=== PATIENT | female | born 2000 | race Caucasian/White ===

== ENCOUNTER 2019-08-22 13:30 | Emergency (ER) | payer OTHER ==
[2019-08-22 14:09] VITALS: BP 118/77
[2019-08-22] MEDS ORDERED: KETOROLAC TROMETHAMINE 60 MG/2 ML SDV IM ONE (14:13)
[2019-08-22] MEDS ORDERED: ACETAMINOPHEN 325 MG TABLET PO ONE (14:14)
[2019-08-22] MEDS ORDERED: LIDOCAINE 5% (700 MG) TRANSDERMAL ADH..PATCH TP ONE (14:14)
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
== END 2019-08-22 14:50 | disposition home or self-care (01) ==
LOC: ER 13:30
DX: S16.1XXA Strain of muscle, fascia and tendon at neck level, initial encounter (principal); M54.2 Cervicalgia; V87.7XXA Person injured in collision between other specified motor vehicles (traffic), initial encounter
CPT/HCPCS: 99283; 96372; J1885

== ENCOUNTER 2019-09-24 11:01 | Emergency (ER) | payer OTHER ==
--- NOTE | 2019-09-24 12:59 | ER Document Report ---
ED Medical Screen (RME) - General Chief Complaint: Vaginal Bleeding Stated Complaint: VAGINAL BLEEDING Time Seen by Provider: 09/24/19 12:54 Notes: HPI: 18-year-old female presenting to the emergency department complaining of vaginal bleeding over the last 2 days. Has had some tissue and clots. States she found out she was 3 days ago. States vaginal bleeding has eased off slightly today but she is still bleeding. Reports mild pelvic cramping. Patient believes she is approximately 5 weeks by dates. Did have a positive test at home I have greeted and performed a rapid initial assessment of this patient. A comprehensive ED assessment and evaluation of the patient, analysis of test results and completion of the medical decision making process will be conducted by additional ED providers PHYSICAL EXAMINATION: GENERAL: Well-appearing, well-nourished and in no acute distress. HEAD: Atraumatic, normocephalic. EYES: sclera anicteric, conjunctiva are normal. ENT: Moist mucous membranes. NECK: Normal range of motion LUNGS: Normal work of breathing HEART: 2+ radial pulses bilaterally ABD: limited by positioning for exam in triage. No reproducible abdominal pain on palpation EXTREMITIES: no pitting or edema. No cyanosis. NEUROLOGICAL: No focal neurological deficits. Moves all extremities spontaneously and on command. PSYCH: Normal mood, normal affect. SKIN: Warm, Dry, normal turgor, no rashes or lesions noted. TRAVEL OUTSIDE OF THE [place] IN LAST 30 DAYS: No - Related Data Allergies/Adverse Reactions: No Known Allergies Allergy (Unverified 08/22/19 14:01) Physical Exam - Vital signs Vitals: Temp Pulse Resp BP Pulse Ox 98.8 F 94 19 148/78 H 100 09/24/19 12:09/24/19 12:09/24/19 12:09/24/19 12:09/24/19 12:27 Course - Vital Signs Vital signs: Temp Pulse Resp BP Pulse Ox 98.8 F 94 19 148/78 H 100 09/24/19 12:27 09/24/19 12:27 09/24/19 12:27 09/24/19 12:27 09/24/19 12:27
[2019-09-24 13:36] LABS: ABSOLUTE BASOPHILS # (AUTO) 0.1 10^3/uL (0.0-0.2); ABSOLUTE EOSINOPHILS # (AUTO) 0.2 10^3/uL (0.0-0.6); ABSOLUTE LYMPHOCYTES (AUTO) 2.4 10^3/uL (0.5-4.7); ABSOLUTE MONOCYTES (AUTO) 0.4 10^3/uL (0.1-1.4); ABSOLUTE NEUT (AUTO) 5.2 10^3/uL (1.7-8.2); BASOPHILS % (AUTO) 0.6 % (0-2); EOSINOPHILS % (AUTO) 2.9 % (0-6); HEMATOCRIT 42.2 % (36.0-47.0); LYMPHOCYTES % (AUTO) 29.2 % (13-45); MEAN CORPUSCULAR HEMOGLOBIN 30.4 pg (27.0-33.4); MEAN CORPUSCULAR HGB CONC 35.5 g/dL (32.0-36.0); MEAN CORPUSCULAR VOLUME 86 fl (80-97); MONOCYTES % (AUTO) 4.5 % (3-13); PLATELET COUNT 283 10^3/uL (150-450); RED BLOOD COUNT 4.93 10^6/uL (3.72-5.28); RED CELL DISTRIBUTION WIDTH 12.3 % (11.5-14.0); SEGMENTED NEUTROPHILS % (AUTO) 62.8 % (42-78); TOTAL CELLS COUNTED % (AUTO) 100 %; WHITE BLOOD COUNT 8.3 10^3/uL (4.0-10.5)
[2019-09-24 13:44] LABS: APPEARANCE,URINE SLIGHTLY-CLOUDY; BILIRUBIN,URINE NEGATIVE (NEGATIVE); COLOR,URINE YELLOW; GLUCOSE, URINE NEGATIVE (NEGATIVE); KETONES,URINE NEGATIVE (NEGATIVE); LEUKOCYTE ESTERASE,URINE NEGATIVE (NEGATIVE); NITRITE,URINE NEGATIVE (NEGATIVE); PROTEIN,URINE NEGATIVE (NEGATIVE); URINE SPECIFIC GRAVITY 1.011; UROBILINOGEN,URINE NEGATIVE mg/dL (<2.0)
[2019-09-24 13:57] LABS: ALBUMIN 4.7 g/dL (3.5-5.0); ALKALINE PHOSPHATASE 67 U/L (38-126); ANION GAP 11 (5-19); ASPARTATE AMINO TRANSFERASE 25 U/L (14-36); BILIRUBIN,DIRECT 0.2 mg/dL (0.0-0.4); BILIRUBIN,TOTAL 0.4 mg/dL (0.2-1.3); BLOOD UREA NITROGEN 11 mg/dL (7-20); CALCIUM 9.9 mg/dL (8.4-10.2); CARBON DIOXIDE 26 mmol/L (22-30); CHLORIDE 101 mmol/L (98-107); GLUCOSE 105 mg/dL (75-110); POTASSIUM 4.8 mmol/L (3.6-5.0); TOTAL PROTEIN 7.9 g/dL (6.3-8.2)
[2019-09-24 15:07] LABS: CHLAM PCR NOT DETECTED (NOT DETECT)
--- NOTE | 2019-09-24 15:39 | RADIOLOGY REPORT (SQ) ---
EXAM DESCRIPTION: U/S OB TRANSVAG W/DOPPLER COMPLETED DATE/TIME: 09/24/2019 3:07 pm REASON FOR STUDY: vag bleeding COMPARISON: None. TECHNIQUE: Transvaginal static and realtime grayscale images acquired of the pelvis. Additional keanu cted spectral and color Doppler images recorded. All images stored on PACs. bHC.32 mIU/mL. CLINICAL DATES: LMP 08/20/2019. ROSITA based on LMP 05/26/2020. EGA based on LMP 5 weeks 0 days. LIMITATIONS: None. FINDINGS: UTERUS: The uterus measures 7.4 x 4.6 x 3.8 cm. There is no intrauterine gestation. The endometrial endometrium measures 7 mm in thickness. CERVICAL LENGTH: 2.5 cm. Closed. RIGHT ADNEXA: The right ovary measures 3.8 x 2.7 x 2.1 cm and on Doppler there is intact arterial inf low and venous outflow within the ovarian stroma. There is no adnexal mass. LEFT ADNEXA: The left ovary measures 2.6 x 1.7 x 1.7 cm and on Doppler there is intact arterial inflo w and venous outflow within the ovarian stroma. There is no adnexal mass. FREE FLUID: Trace amount. OTHER: No other finding. IMPRESSION: 1. No intrauterine . In the setting of a positive beta HCG the differential c onsiderations include an early intrauterine , a failed intrauterine , and a nonvisu alized ectopic . Clinical correlation with serial beta HCGs is recommended. 2. No evidence for ovarian torsion. TECHNICAL DOCUMENTATION: JOB ID: [id number] [employer]- All Rights Reserved Reading location - IP/workstation name: [email or web address]
--- NOTE | 2019-09-24 15:45 | ER Document Report ---
HPI - HPI Patient complains to provider of: vag bleeding Time Seen by Provider: 09/24/19 12:54 Onset: Yesterday Onset/Duration: Gradual Pain Level: Denies Context: Patient presents complaining of pelvic cramping yesterday and vaginal bleeding that started yesterday. Patient states cramping has since resolved but the bleeding has persisted. Patient reports occasional lightheadedness. Patient is currently G1, P0 and has not had any care with this thus far. Associated Symptoms: Other - Vaginal bleeding. denies: Chest pain, Nonproductive cough, Productive cough, Fever, Headache Exacerbated by: Denies Relieved by: Denies Similar symptoms previously: No Recently seen / treated by doctor: No - ROS ROS below otherwise negative: Yes Systems Reviewed and Negative: Yes All other systems reviewed and negative - CONSTITUTIONAL Constitutional: DENIES: Fever - NEURO Neurology: DENIES: Weakness - GASTROINTESTINAL Gastrointestinal: REPORTS: Abdominal Pain - Yesterday, now resolved. DENIES: Nausea - URINARY Urinary: DENIES: Dysuria - REPRODUCTIVE Reproductive: REPORTS: :, Abnormal bleeding / discharge - DERM Skin Color: Normal Skin Problems: None Past Medical History - General Information source: Patient - Social History Smoking Status: Current Every Day Smoker Frequency of alcohol use: None Drug Abuse: None Lives with: Spouse/Significant other Family History: None Patient has suicidal ideation: No Patient has homicidal ideation: No - Medical History Medical History: Negative Surgical Hx: Negative Vertical Provider Document - CONSTITUTIONAL Agree With Documented VS: Yes Exam Limitations: No Limitations General Appearance: WD/WN, No Apparent Distress - INFECTION CONTROL TRAVEL OUTSIDE OF THE [place] IN LAST 30 DAYS: No - HEENT HEENT: Atraumatic, Normocephalic - NECK Neck: Normal Inspection, Supple. negative: Lymphadenopathy-Left, Lymphadenopathy-Right - RESPIRATORY Respiratory: Breath Sounds Normal, No Respiratory Distress - CARDIOVASCULAR Cardiovascular: Regular Rate, Regular Rhythm, No Murmur - GI/ABDOMEN Gastrointestinal: Abdomen Soft, Abdomen Non-Tender, No Organomegaly, Normal Bowel Sounds - REPRODUCTIVE Notes: Small amount of blood in vaginal vault, cervix closed, no clots - BACK Back: Normal Inspection. negative: CVA Tenderness-Right, CVA Tenderness-Left - MUSCULOSKELETAL/EXTREMETIES Musculoskeletal/Extremeties: ROCKY GOMEZ - NEURO Level of Consciousness: Awake, Alert, Appropriate Motor/Sensory: No Motor Deficit, No Sensory Deficit - DERM Integumentary: Warm, Dry, No Rash Course - Re-evaluation Re-evalutation: 09/24/19 16:07 Patient with vaginal bleeding. No intrauterine noted on ultrasound although patient's quant is too low to suspect any ultrasound findings at this time. Discussed with patient concerned about possible missed AB versus early . Will have patient return to lab in 48 hours for repeat blood test to further evaluate status. Patient with stable vital signs as well as H&H. - Vital Signs Vital signs: Temp Pulse Resp BP Pulse Ox 98.8 F 94 19 148/78 H 100 09/24/19 12:27 09/24/19 12:27 09/24/19 12:27 09/24/19 12:27 09/24/19 12:27 - Laboratory Result Diagrams: 09/24/19 13:06 09/24/19 13:06 Laboratory results interpreted by me: 09/24/19 09/24/19 13:06 13:10 Creatinine 0.48 L Beta HCG, Quant 79.32 H Urine Blood MODERATE H Urine Ascorbic Acid 20 H 09/24/19 16:07 Labs- Entire Visit 09/24/19 09/24/19 09/24/19 13:06 13:06 13:06 WBC 8.3 RBC 4.93 Hgb 15.0 Hct 42.2 MCV 86 MCH 30.4 MCHC 35.5 RDW 12.3 Plt Count 283 Lymph % (Auto) 29.2 [place] % (Auto) 4.5 Eos % (Auto) 2.9 Baso % (Auto) 0.6 Absolute Neuts (auto) 5.2 Absolute Lymphs (auto) 2.4 Absolute Monos (auto) 0.4 Absolute Eos (auto) 0.2 Absolute Basos (auto) 0.1 Seg Neutrophils % 62.8 Sodium 137.7 Potassium 4.8 Chloride 101 Carbon Dioxide 26 Anion Gap 11 BUN 11 Creatinine 0.48 L Est GFR ( Amer) > 60 Est GFR (MDRD) Non-Af > 60 Glucose 105 Calcium 9.9 Total Bilirubin 0.4 Direct Bilirubin 0.2 Neonat Total Bilirubin Not Reportable Neonat Direct Bilirubin Not Reportable Neonat Indirect Bili Not Reportable AST 25 ALT 26 Alkaline Phosphatase 67 Total Protein 7.9 Albumin 4.7 Lipase 39.2 Beta HCG, Quant 79.32 H Total Beta HCG POSITIVE Urine Color Urine Appearance Urine pH Ur Specific [place] Urine Protein Urine Glucose (UA) Urine Ketones Urine Blood Urine Nitrite Urine Bilirubin Urine Urobilinogen Ur Leukocyte Esterase Urine WBC (Auto) Urine RBC (Auto) Squamous Epi Cells Auto Urine Mucus (Auto) Urine Ascorbic Acid Epi Cells (Wet Prep) Bacteria (Wet Prep) Trichomonas (Wet Prep) Vaginal WBC Vaginal RBC Vaginal Yeast Chlamydia DNA (PCR) N.gonorrhoeae DNA (PCR) Blood Type O POSITIVE Rhogam Indicated RHOGAM NOT INDICATED 09/24/19 09/24/19 09/24/19 13:10 13:10 15:23 WBC RBC Hgb Hct MCV MCH MCHC RDW Plt Count Lymph % (Auto) [place] % (Auto) Eos % (Auto) Baso % (Auto) Absolute Neuts (auto) Absolute Lymphs (auto) Absolute Monos (auto) Absolute Eos (auto) Absolute Basos (auto) Seg Neutrophils % Sodium Potassium Chloride Carbon Dioxide Anion Gap BUN Creatinine Est GFR ( Amer) Est GFR (MDRD) Non-Af Glucose Calcium Total Bilirubin Direct Bilirubin Neonat Total Bilirubin Neonat Direct Bilirubin Neonat Indirect Bili AST ALT Alkaline Phosphatase Total Protein Albumin Lipase Beta HCG, Quant Total Beta HCG Urine Color YELLOW Urine Appearance SLIGHTLY-CLOUDY Urine pH 8.0 Ur Specific [place] 1.011 Urine Protein NEGATIVE Urine Glucose (UA) NEGATIVE Urine Ketones NEGATIVE Urine Blood MODERATE H Urine Nitrite NEGATIVE Urine Bilirubin NEGATIVE Urine Urobilinogen NEGATIVE Ur Leukocyte Esterase NEGATIVE Urine WBC (Auto) 1 Urine RBC (Auto) 99 Squamous Epi Cells Auto 1 Urine Mucus (Auto) RARE Urine Ascorbic Acid 20 H Epi Cells (Wet Prep) 3+ EPITHELIALS SEEN Bacteria (Wet Prep) 3+ BACTERIA SEEN Trichomonas (Wet Prep) NO TRICHOMONAS SEEN Vaginal WBC 1+ WBCS SEEN Vaginal RBC 4+ RBCS SEEN Vaginal Yeast NO YEAST SEEN Chlamydia DNA (PCR) NOT DETECTED N.gonorrhoeae DNA (PCR) NOT DETECTED Blood Type Rhogam Indicated - Diagnostic Test Radiology reviewed: Reports reviewed Discharge - Discharge Clinical Impression: Vagina bleeding, test positive, Bacterial vaginosis Condition: Stable Disposition: HOME, SELF-CARE Instructions: Ectopic Precaution ([facility]), Metronidazole ([facility]), Vaginosis, Bacterial ([facility]) Additional Instructions: Return immediately for any new or worsening symptoms Followup with your primary care provider or [facility], provider call tomorrow to make a followup appointment Return to lab in 48 hours to have a repeat blood test. Will need to have a repeat ultrasound at a later date to further evaluate the status. Prescriptions: Metronidazole [Flagyl 500 mg Tablet] 500 mg PO BID #14 tablet Forms: Follow-Up Laboratory Testing [facility] - Follow up as needed [facility] [Provider Group] - Follow up as needed
[2019-09-24 15:58] LABS: BACTERIA (WET MOUNT) 3+ BACTERIA SEEN; EPITHELIALS (WET MOUNT) 3+ EPITHELIALS SEEN; RBCS (WET MOUNT) 4+ RBCS SEEN; T.VAGINALIS (WET MOUNT) NO TRICHOMONAS SEEN; WBCS (WET MOUNT) 1+ WBCS SEEN; YEAST (WET MOUNT) NO YEAST SEEN
[2019-09-24 16:31] VITALS: BP 124/83
== END 2019-09-24 16:31 | disposition home or self-care (01) ==
LOC: ER 11:01
DX: O23.599 Infection of other part of genital tract in pregnancy, unspecified trimester (principal); B96.89 Other specified bacterial agents as the cause of diseases classified elsewhere; O46.90 Antepartum hemorrhage, unspecified, unspecified trimester; O26.899 Other specified pregnancy related conditions, unspecified trimester; R10.2 Pelvic and perineal pain; R42 Dizziness and giddiness; O99.330 Smoking (tobacco) complicating pregnancy, unspecified trimester; Z3A.00 Weeks of gestation of pregnancy not specified
CPT/HCPCS: 36415; 76817; 80053; 81001; 83690; 84702; 85025; 86900; 86901; 87210; 87491; 87591; 93976; 99284